=== PATIENT | female | born 1930 | race Caucasian/White ===

== ENCOUNTER 2017-10-12 08:44 | Emergency (ER) | payer MEDICARE ==
[~2017-10-12] VITALS: Ht 154.9 cm; Wt 74.0 kg
[~2017-10-12 08:44] MED LIST: ALEVE220 M1 PO; AMIODARONE200 MG PO; ASPIRIN ADULT L81 MG PO; ATORVASTATIN CA40 MG PO; BENADRYL25 M1 PO; BLOOD GLUCOSE MONITO; CALCIUM600 M1 PO; CINNAMON500 M1 PO; DOXYCYCL HYC100 MG PO; FREESTYLE LITE TEST; FUROSEMIDE40 MG; HYDROCHLOROTHIA50 MG PO; LANTUS SOLOSTAR SC; LEVOTHYROXIN50 MC1 PO; LOSARTAN POT100 MG PO; METFORMIN500 M2 PO; METOPROLOL SUCC25 MG; MULTIVITAMI1 PO; NOVOLOG100 IU/1 M SC; TERAZOSIN1 MG PO; WARFARIN2 MG PO
[2017-10-12 09:39] LABS: INFLUENZA A POSITIVE (NONE DETECT); INFLUENZA B NONE DETECTED (NONE DETECT)
[2017-10-12] MEDS ORDERED: TAM75CAP PO (09:43)
[2017-10-12] MEDS ORDERED: ZPAK PO (10:32)
[2017-10-12 10:40] VITALS: BP 129/60
== END 2017-10-12 10:40 | disposition home or self-care (01) ==
LOC: ED 08:44
PROVIDERS: Family Medicine
DX: J11.1 Influenza due to unidentified influenza virus with other respiratory manifestations (principal); R50.9 Fever, unspecified; R05 Cough; I10 Essential (primary) hypertension; I48.91 Unspecified atrial fibrillation; Z79.01 Long term (current) use of anticoagulants; E11.9 Type 2 diabetes mellitus without complications; Z79.4 Long term (current) use of insulin

== ENCOUNTER 2018-10-18 09:58 | Emergency (ER) | payer MEDICARE ==
[~2018-10-18] VITALS: Ht 154.9 cm; Wt 72.0 kg
[~2018-10-18 09:58] MED LIST changes: +LANTUS SOL100 UNIT/M; -LANTUS SOLOSTAR SC; +TAM75CAP PO; +ZPAK PO
[2018-10-18] MEDS ORDERED: HUMALOG JU100 UNIT/M (10:17)
[2018-10-18] MEDS ORDERED: CEPHALEXIN500 M1 PO (11:36)
[2018-10-18] MEDS ORDERED: MUCINEX DM1 TA1 PO (11:36)
[2018-10-18 11:40] VITALS: BP 166/74
== END 2018-10-18 11:40 | disposition home or self-care (01) ==
LOC: ED 09:58
DX: J06.9 Acute upper respiratory infection, unspecified (principal); I10 Essential (primary) hypertension; E11.9 Type 2 diabetes mellitus without complications; I48.91 Unspecified atrial fibrillation

== ENCOUNTER → 2018-11-21 | Outpatient (REF) | payer MEDICARE ==
[~2018-11-21] MED LIST changes: +CEPHALEXIN500 M1 PO; +HUMALOG JU100 UNIT/M; +MUCINEX DM1 TA1 PO; +OFLOXACIN0.3 % OS
[2018-11-21 11:12] LABS: INTERNATIONAL NORMALIZED RATIO 1.8 RATIO (0.7-1.3); PROTHROMBIN TIME 18.4 SECONDS (9.0-12.5)
[2018-11-21 11:46] LABS: TSH, 3RD GENERATION 5.08 uIU/mL (0.47 - 4.68)
== END | disposition home or self-care (01) ==
LOC: LAB 09:31
DX: I25.810 Atherosclerosis of coronary artery bypass graft(s) without angina pectoris (principal); E78.00 Pure hypercholesterolemia, unspecified; I50.32 Chronic diastolic (congestive) heart failure; I15.9 Secondary hypertension, unspecified; I48.0 Paroxysmal atrial fibrillation; E11.8 Type 2 diabetes mellitus with unspecified complications; Z51.81 Encounter for therapeutic drug level monitoring; Z79.01 Long term (current) use of anticoagulants

== ENCOUNTER 2018-11-27 16:48 | Emergency (ER) | payer MEDICARE ==
[~2018-11-27] VITALS: Ht 154.9 cm; Wt 76.0 kg
[~2018-11-27 16:48] MED LIST changes: -OFLOXACIN0.3 % OS
[2018-11-27] MEDS ORDERED: OFLOXACIN0.3 % OS (17:28)
[2018-11-27 17:44] LABS: HEMATOCRIT 37.6 % (37.0-47.0); HEMOGLOBIN 12.4 g/dl (12.0-16.0); IMMATURE GRANULOCYTES 0.4 % (0.0-5.0); MEAN CELL VOLUME 97.2 fL CALC (80.0-100.0); NEUT# 5.04 thou/uL (2.00-7.15); RED BLOOD COUNT 3.87 mill/uL (4.20-5.60); RED CELL DISTRI WIDTH 13.9 % (11.5-15.5)
[2018-11-27 18:03] LABS: CREATININE 1.7 mg/dL (0.5-1.0); POTASSIUM 3.8 mmol/l (3.5-5.1)
[2018-11-27 18:49] VITALS: BP 162/70
== END 2018-11-27 19:14 | disposition home or self-care (01) ==
LOC: ED 16:48
PROVIDERS: Family Medicine
DX: R26.81 Unsteadiness on feet (principal); R42 Dizziness and giddiness; R20.0 Anesthesia of skin; I10 Essential (primary) hypertension; I48.91 Unspecified atrial fibrillation; Z79.01 Long term (current) use of anticoagulants; E11.9 Type 2 diabetes mellitus without complications; Z79.4 Long term (current) use of insulin